=== PATIENT | female | born 1995 | race Caucasian/White ===

== ENCOUNTER 2018-08-11 03:46 | Emergency (ER) | payer OTHER ==
[~2018-08-11] VITALS: Ht 162.6 cm; Wt 73.4 kg
[2018-08-11 03:54] VITALS: BP 118/73; RESP 20; Ht 162.6 cm; Wt 73.4 kg
[2018-08-11] MEDS ORDERED: ONDANSETRON (ODT) 4 MG TAB ODT STA (04:03)
[2018-08-11] MEDS ORDERED: HYDROCODONE/APAP (5/325) TAB PO ONE (04:30)
[2018-08-11] MEDS ORDERED: ACET1TAB40 PO (05:10)
--- NOTE | 2018-08-11 05:13 | ERD ---
ER Documentation Chief Complaint Chief Complaint EPISTAXIS, S/P TRIP AND FALL HPI 23-year-old female states that she fell on her face. She has nasal bleeding and swelling and deformity. She has loss of consciousness, vomiting, neck pain, deficits. ROS All systems reviewed and are negative except as per history of present illness. Medications Home Meds Active Scripts Acetaminophen with Codeine (Acetaminophen-Cod #3 Tablet) 1 Each Tablet, 1 TAB PO Q6H, #10 TAB Prov:JABARI TAMEZ MD 08/11/18 Allergies Allergies: Coded Allergies: No Known Allergy (Unverified , 08/11/18) PMhx/Soc Medical and Surgical Hx: pt denies Surgical Hx Hx Respiratory Disorders: Yes (Asthma) Hx Alcohol Use: Yes (occasional) Hx Substance Use: Yes (marijuana) Hx Tobacco Use: No Smoking Status: Current every day smoker FmHx Family History: No diabetes, No coronary disease, No other Physical Exam Vitals Vital Signs Date Temp Pulse Resp B/P (MAP) Pulse Ox O2 O2 Flow FiO2 Time Delivery Rate 08/11/18 99.9 138 20 118/73 97 03:54 (88) Physical Exam Const: No acute distress Head: Atraumatic Eyes: Normal Conjunctiva ENT: Normal External Ears, Nose and Mouth. There is a deformity of the nasal bridge to the right. There is a small abrasion or so of facial laceration on th e bridge without active bleeding. There is no septal hematoma. Slight crepitance with manual reduction. Neck: Full range of motion. No meningismus. Resp: Clear to auscultation bilaterally Cardio: Regular rate and rhythm, no murmurs Abd: Soft, non tender, non distended. Normal bowel sounds Skin: No petechiae or rashes Back: No midline or flank tenderness Ext: No cyanosis, or edema Neur: Awake and alert Psych: Normal Mood and Affect Results 24 hrs Current Medications Medications Dose Sig/Sara Start Time Status Last (Trade) Ordered Route PRN Stop Time Admin Dose Reason Admin 1 tab ONCE ONCE 08/11/18 DC 08/11/18 Acetaminophen PO 04:30 04:23 / 08/11/18 04:31 Hydrocodone Bitart ([place] (5/325)) Ondansetron 8 mg ONCE STAT 08/11/18 DC 08/11/18 HCl (Zofran ODT 04:03 04:22 Odt) 08/11/18 04:05 Procedures/MDM Patient presents with facial swelling and deformity after falling on her face today. CT shows bilateral nasal fractures and nasal septal fracture. Partial manual reduction was performed with clinical improvement. No signs or symptoms to suggest intracranial bleeding, neck injury, deficits, additional complications. She has no signs of active bleeding, septal hematoma. She will discharged home with recommendations for ENT follow-up, ice, and a prescription of Tylenol 3 for pain. She should return for fevers, vomiting, new worsening symptoms or with primary care doctor and ENT as advised. She is advised she may need authorization from primary doctor for ENT visit. Departure Diagnosis: Primary Impression: Nasal fracture Encounter type: initial encounter Fracture type: closed Qualified Codes: S02.2XXA - Fracture of nasal bones, initial encounter for closed fracture Condition: Stable Patient Instructions: Fracture, Nose (With X-Ray) Referrals: SHREYA MAN MD, STEPHEN H MD Additional Instructions: See her nose throat doctor for further evaluation and treatment of nasal fracture. Recheck otherwise for fevers, vomiting, new or worsening symptoms. May need authorization from primary doctor for specialist visit. JABARI TAMEZ MD August 11, 2018 05:13
[2018-08-11 05:27] VITALS: PULSE 99
== END 2018-08-11 05:28 | disposition home or self-care (01) ==
LOC: FTE 03:46
DX: S02.2XXA Fracture of nasal bones, initial encounter for closed fracture (principal); F17.210 Nicotine dependence, cigarettes, uncomplicated; J45.909 Unspecified asthma, uncomplicated; W01.0XXA Fall on same level from slipping, tripping and stumbling without subsequent striking against object, initial encounter; Y92.9 Unspecified place or not applicable
CPT/HCPCS: 70486